=== PATIENT | female | born 1935 | race Two or more races ===

== ENCOUNTER 2021-04-18 09:18 | Inpatient (IN) | payer MEDICARE ==
[~2021-04-18] VITALS: Ht 154.9 cm; Wt 84.1 kg
[2021-04-18] MEDS ORDERED: CLINDAMYCIN 300MG IV 50 ML IV ONE (09:30)
[2021-04-18] MEDS ORDERED: cefTRIAXone 1GM/50ML D5W 50 ML IV ONE (09:30)
[2021-04-18 10:01] LABS: Basophils # (auto) 0.1 10 ^3/uL (0-0.2); Basophils % (auto) 1.2 % (0.0-2.0); Eosinophils # (auto) 0.1 10 ^3/uL (0-0.8); Eosinophils % (auto) 2.8 % (0.0-7.0); Hematocrit 36.7 % (36.0-46.0); Hemoglobin 12.6 g/dL (12.2-16.2); Lymphocytes # (auto) 0.9 10 ^3/uL (0.4-5.4); Lymphocytes % (auto) 20.4 % (10.0-50.0); Mean Corpuscular Hemoglobin 31.2 pg (28.0-32.0); Mean Corpuscular Hgb Conc. 34.4 g/dL (32.0-36.0); Mean Corpuscular Volume 90.6 fL (80.0-100.0); Monocytes # (auto) 0.6 10 ^3/uL (0-1.3); Monocytes % (auto) 13.1 % (0.0-12.0); Neutrophils # (auto) 2.8 10 ^3/uL (1.6-8.6); Neutrophils % (auto) 62.5 % (37.0-80.0); Nucleated Red Blood Cells % 0.1 %; Red Blood Cells 4.05 10^6/uL (4.0-5.20); White Blood Cell 4.5 10^3/uL (4.4-10.8)
[2021-04-18 10:16] LABS: Albumin 3.1 g/dL (3.4-5.0); Anion Gap 7 (5-15); Blood Urea Nitrogen 16 mg/dL (7-18); Calcium 8.9 mg/dL (8.5-10.1); Carbon Dioxide 25 mmol/L (21-32); Chloride 96 mmol/L (98-107); Glucose 98 mg/dL (74-106); INR 0.96 (0.9-1.15); Partial Thromboplastin Time 27.5 sec (23.0-31.2); Potassium 3.9 mmol/L (3.5-5.1); Sodium 128 mmol/L (136-145)
[2021-04-18 10:21] LABS: Alanine Aminotransferase 32 U/L (13-56); Alkaline Phosphatase 84 U/L (45-117); Aspartate Aminotransferase 24 U/L (15-37); BUN/Creatinine Ratio 22.9; Bilirubin, Total 0.5 mg/dL (0.2-1.0); GFR African American 102 mL/min; GFR Non-African American 84 mL/min; Total Protein 6.8 g/dL (6.4-8.2)
[2021-04-18] MEDS ORDERED: IOHEXOL 300 MG/ML 100ML BOTTLE IJ ONE (10:35)
[2021-04-18] MEDS ORDERED: MORPHINE SULF INJ 2 MG/ML SYRINGE 1ML IV PRN (16:45)
[2021-04-18] MEDS ORDERED: NITROGLYCERIN 0.4 MG SL TAB SL PRN (16:45)
[2021-04-18] MEDS ORDERED: ACETAMINOPHEN 500 MG TAB PO PRN (18:15)
[2021-04-18] MEDS ORDERED: ONDANSETRON HCL 4 MG/2 ML VIAL IV PRN (18:15)
[2021-04-18] MEDS: SODIUM CHLORIDE 0.9% 1,000 ML IV SCH (18:37)
[2021-04-18] MEDS: CLINDAMYCIN 600MG IV 50 ML IV SCH (22:15)
[2021-04-18] MEDS ORDERED: FLUT1SPR5 (23:45)
[2021-04-18] MEDS ORDERED: CYAN-17 PO (23:45)
[2021-04-18] MEDS ORDERED: FLUT1INH6 IN (23:45)
[2021-04-18] MEDS ORDERED: LACTCAP35 OR (23:45)
[2021-04-18] MEDS ORDERED: ZINC220C8 PO (23:45)
[2021-04-18] MEDS ORDERED: MULTCAP45 PO (23:45)
[2021-04-18] MEDS ORDERED: GLUC1CAP11 PO (23:45)
[2021-04-18] MEDS ORDERED: MONT10TA42 PO (23:45)
[2021-04-18] MEDS ORDERED: HYDR-4795 PO (23:45)
[2021-04-18] MEDS ORDERED: OMEP20TA PO (23:45)
[2021-04-18] MEDS ORDERED: CRAN125T PO (23:45)
[2021-04-18] MEDS ORDERED: CYCL10TA6 PO (23:45)
[2021-04-18] MEDS ORDERED: GUAI100S PO (23:45)
[2021-04-18] MEDS ORDERED: CHOL100047 PO (23:45)
[2021-04-18] MEDS ORDERED: ASCO500T11 PO (23:45)
[2021-04-18] MEDS ORDERED: CARB0.5D8 EACHEYE (23:45)
[2021-04-18] MEDS ORDERED: LOSA100T33 PO (23:45)
[2021-04-18] MEDS ORDERED: GABA100C9 PO (23:45)
[2021-04-18] MEDS ORDERED: FLAX1300 OR (23:45)
[2021-04-18] MEDS ORDERED: ECHI80CA PO (23:45)
[2021-04-18] MEDS ORDERED: MELO1TAB56 PO (23:45)
[2021-04-18 23:52] VITALS: BP 144/72
[2021-04-19] VITALS (8 sets, daily range): BP systolic 152–161; BP diastolic 75–84
[2021-04-19] MEDS: SODIUM CHLORIDE 0.9% 1,000 ML IV SCH ×2 (04:15→15:10)
[2021-04-19] MEDS: CLINDAMYCIN 600MG IV 50 ML IV SCH ×3 (05:26→21:25)
[2021-04-19 06:29] LABS: Albumin 3.2 g/dL (3.4-5.0); BUN/Creatinine Ratio 25.5; Calcium 9.1 mg/dL (8.5-10.1); Potassium 3.9 mmol/L (3.5-5.1)
[2021-04-19 06:32] LABS: Bilirubin, Total 0.4 mg/dL (0.2-1.0); Total Protein 6.3 g/dL (6.4-8.2)
[2021-04-19] MEDS: cefTRIAXone 1GM/50ML D5W 50 ML IV SCH (08:36)
[2021-04-19] MEDS ORDERED: ENOXAPARIN SOD 40 MG/0.4 ML SYRINGE SC SCH (10:00)
[2021-04-19] MEDS ORDERED: ALBUTEROL SULF 2.5 MG/0.5ML(0.5%) NEB SOLN NEB PRN (12:15)
[2021-04-19] MEDS: hydrALAZINE HCL 20 MG/ML VL IV PRN (21:24)
[2021-04-19] MEDS: traMADol HCL 50 MG TAB PO PRN (21:24)
[2021-04-20] VITALS (9 sets, daily range): BP systolic 133–152; BP diastolic 64–84
[2021-04-20] MEDS: SODIUM CHLORIDE 0.9% 1,000 ML IV SCH ×2 (05:17→12:51)
[2021-04-20 05:27] LABS: Basophils # (auto) 0 10 ^3/uL (0-0.2); Basophils % (auto) 1.2 % (0.0-2.0); Eosinophils # (auto) 0.1 10 ^3/uL (0-0.8); Eosinophils % (auto) 2.4 % (0.0-7.0); Hematocrit 38.9 % (36.0-46.0); Hemoglobin 13.1 g/dL (12.2-16.2); Lymphocytes # (auto) 1.1 10 ^3/uL (0.4-5.4); Lymphocytes % (auto) 30.3 % (10.0-50.0); Mean Corpuscular Hemoglobin 31.6 pg (28.0-32.0); Mean Corpuscular Hgb Conc. 33.6 g/dL (32.0-36.0); Mean Corpuscular Volume 93.9 fL (80.0-100.0); Monocytes # (auto) 0.7 10 ^3/uL (0-1.3); Neutrophils # (auto) 1.8 10 ^3/uL (1.6-8.6); Neutrophils % (auto) 48.1 % (37.0-80.0); Nucleated Red Blood Cells % 0.3 %; Red Blood Cells 4.14 10^6/uL (4.0-5.20); Red Cell Distribution Width 13.2 % (11.8-14.3); White Blood Cell 3.7 10^3/uL (4.4-10.8)
[2021-04-20 05:46] LABS: BUN/Creatinine Ratio 24.4; Calcium 8.5 mg/dL (8.5-10.1); Potassium 3.5 mmol/L (3.5-5.1)
[2021-04-20] MEDS: CLINDAMYCIN 600MG IV 50 ML IV SCH ×3 (05:52→21:24)
[2021-04-20] MEDS: cefTRIAXone 1GM/50ML D5W 50 ML IV SCH (08:21)
[2021-04-20] MEDS ORDERED: ceFAZolin 1GM/50ML 50 ML IV ONE (14:58)
[2021-04-20] MEDS ORDERED: fentaNYL CITRATE 100 MCG/2 ML VL ONE (15:06)
[2021-04-20] MEDS ORDERED: MEPERIDINE HCL (25 MG/ML) 1ML VIAL ONE (15:06)
[2021-04-20] MEDS ORDERED: MIDAZOLAM HCL 2MG/2ML 2ml VIAL (1mg/ml) ONE (15:08)
[2021-04-20] MEDS ORDERED: DexAMETHasone SOD PHOS 10MG/1ML VIAL INJ ONE (15:17)
[2021-04-20] MEDS ORDERED: PROPOFOL 10 MG/ML 20 ML IV ONE (15:17)
[2021-04-20] MEDS ORDERED: MORPHINE SULF INJ 2 MG/ML SYRINGE 1ML IV PRN (15:30)
[2021-04-20] MEDS ORDERED: ONDANSETRON HCL 4 MG/2 ML VIAL IV PRN (15:30)
[2021-04-20] MEDS ORDERED: MIDAZOLAM HCL 2MG/2ML 2ml VIAL (1mg/ml) IV PRN (15:30)
[2021-04-20] MEDS ORDERED: ePHEDrine SULFATE 50 MG/ML AMP IV PRN (15:30)
[2021-04-20] MEDS ORDERED: LABETALOL HCL 5 MG/ML 4ML SYRINGE IV PRN (15:30)
[2021-04-20] MEDS: HYDROmorphone HCL 2 MG/ML VL IV PRN ×4 (15:57→16:40)
[2021-04-20] MEDS: hydrALAZINE HCL 20 MG/ML VL IV PRN (16:38)
[2021-04-20] MEDS ORDERED: hydrALAZINE HCL 20 MG/ML VL IV ONE (16:45)
[2021-04-20] MEDS: traMADol HCL 50 MG TAB PO PRN (17:20)
[2021-04-20] MEDS ORDERED: HYDROcodone-ACET 5/325MG TAB PO PRN (19:15)
[2021-04-20] MEDS: MORPHINE SULF INJ 2 MG/ML SYRINGE 1ML IV PRN (21:25)
[2021-04-21] MEDS: MORPHINE SULF INJ 2 MG/ML SYRINGE 1ML IV PRN ×2 (04:51→08:45)
[2021-04-21] MEDS: SODIUM CHLORIDE 0.9% 1,000 ML IV SCH (04:51)
[2021-04-21 05:00] VITALS: BP 146/73
[2021-04-21 05:31] LABS: Basophils # (auto) 0 10 ^3/uL (0-0.2); Basophils % (auto) 0.4 % (0.0-2.0); Eosinophils # (auto) 0 10 ^3/uL (0-0.8); Hematocrit 37.6 % (36.0-46.0); Lymphocytes # (auto) 0.6 10 ^3/uL (0.4-5.4); Lymphocytes % (auto) 12.6 % (10.0-50.0); Mean Corpuscular Hemoglobin 31.3 pg (28.0-32.0); Mean Corpuscular Hgb Conc. 34.5 g/dL (32.0-36.0); Mean Corpuscular Volume 90.6 fL (80.0-100.0); Monocytes # (auto) 0.2 10 ^3/uL (0-1.3); Neutrophils # (auto) 3.7 10 ^3/uL (1.6-8.6); Red Blood Cells 4.15 10^6/uL (4.0-5.20); White Blood Cell 4.6 10^3/uL (4.4-10.8)
[2021-04-21] MEDS: CLINDAMYCIN 600MG IV 50 ML IV SCH ×2 (05:34→14:23)
[2021-04-21 05:53] LABS: Calcium 8.8 mg/dL (8.5-10.1); Potassium 4.1 mmol/L (3.5-5.1)
[2021-04-21 05:55] LABS: BUN/Creatinine Ratio 22.2
[2021-04-21 08:30] VITALS: BP 146/62
[2021-04-21] MEDS: cefTRIAXone 1GM/50ML D5W 50 ML IV SCH (08:45)
[2021-04-21 09:00] VITALS: BP 146/62
[2021-04-21] MEDS ORDERED: ENOXAPARIN SOD 40 MG/0.4 ML SYRINGE SC SCH (10:00)
[2021-04-21] MEDS ORDERED: DOCUSATE SOD 100 MG CAP PO SCH (10:00)
[2021-04-21] MEDS ORDERED: CLIN300C8 PO (10:38)
[2021-04-21] MEDS ORDERED: SACC250C PO (10:38)
[2021-04-21 13:00] VITALS: BP 157/64
[2021-04-21 16:38] VITALS: BP 158/73
[2021-04-21 18:30] VITALS: BP 157/64
== END 2021-04-21 19:05 | disposition home health service (06) | DRG 486 ==
LOC: ER 09:18 → TELE 16:37 → TELE-CENTR 22:33
PROVIDERS: ADMIT Internal Medicine; ATTEND Internal Medicine
PROC: 0QPD04Z Removal of Internal Fixation Device from Right Patella, Open Approach (ICD-10-PCS; principal; 2021-04-20 15:05)
PROC: 0QBD0ZZ Excision of Right Patella, Open Approach (ICD-10-PCS; 2021-04-20 15:05)
PROC: 05H933Z Insertion of Infusion Device into Right Brachial Vein, Percutaneous Approach (ICD-10-PCS; 2021-04-21)
PROC: B54MZZA Ultrasonography of Right Upper Extremity Veins, Guidance (ICD-10-PCS; 2021-04-21)
DX: T84.53XA Infection and inflammatory reaction due to internal right knee prosthesis, initial encounter (principal); M86.8X6 Other osteomyelitis, lower leg; L03.115 Cellulitis of right lower limb; M19.90 Unspecified osteoarthritis, unspecified site; Z20.822 Contact with and (suspected) exposure to COVID-19; W01.0XXA Fall on same level from slipping, tripping and stumbling without subsequent striking against object, initial encounter; I10 Essential (primary) hypertension; M25.461 Effusion, right knee; Y83.8 Other surgical procedures as the cause of abnormal reaction of the patient, or of later complication, without mention of misadventure at the time of the procedure; Z88.5 Allergy status to narcotic agent; Y93.89 Activity, other specified; Y92.89 Other specified places as the place of occurrence of the external cause; Y99.8 Other external cause status
CPT/HCPCS: 36415; 71045; 73560; 73701; 80048; 80053; 83605; 83735; 84484; 85025; 85610; 85652; 85730; 87040; 87077; 87081; 87186; 87205; 87426; 93306; 96365; 96367; 97163; G0378; J0690; J0696; J1100; J2250; J2704; J3490

== ENCOUNTER → 2021-05-01 | Emergency (ER) | payer MEDICARE ==
[~2021-05-01] MED LIST: ASCO500T11 PO; CARB0.5D8 EACHEYE; CHOL100047 PO; CLIN300C8 PO; CRAN125T PO; CYAN-17 PO; CYCL10TA6 PO; ECHI80CA PO; FLAX1300 OR; FLUT1INH6 IN; FLUT1SPR5; GABA100C9 PO; GLUC1CAP11 PO; GUAI100S PO; HYDR-4795 PO; LACTCAP35 OR; LOSA100T33 PO; MELO1TAB56 PO; MONT10TA42 PO; MULTCAP45 PO; OMEP20TA PO; SACC250C PO; ZINC220C8 PO
== END | disposition left against medical advice (07) ==
LOC: ER 17:02
DX: Z45.2 Encounter for adjustment and management of vascular access device (principal); Z53.21 Procedure and treatment not carried out due to patient leaving prior to being seen by health care provider

== ENCOUNTER 2022-01-26 13:29 | Inpatient (IN) | payer MEDICARE ==
[~2022-01-26] VITALS: Ht 154.9 cm; Wt 84.4 kg
[~2022-01-26 13:29] MED LIST changes: +CYCL-839 PO; -CYCL10TA6 PO; +MONT-8 PO; -MONT10TA42 PO
[2022-01-26 14:34] LABS: Basophils # (auto) 0.1 10 ^3/uL (0-0.2); Eosinophils # (auto) 0.1 10 ^3/uL (0-0.8); Eosinophils % (auto) 1.2 % (0.0-7.0); Hematocrit 37.2 % (36.0-46.0); Lymphocytes # (auto) 0.9 10 ^3/uL (0.4-5.4); Lymphocytes % (auto) 16.3 % (10.0-50.0); Mean Corpuscular Hemoglobin 31.3 pg (28.0-32.0); Mean Corpuscular Hgb Conc. 34.9 g/dL (32.0-36.0); Mean Corpuscular Volume 89.9 fL (80.0-100.0); Monocytes # (auto) 0.6 10 ^3/uL (0-1.3); Monocytes % (auto) 10.9 % (0.0-12.0); Neutrophils # (auto) 3.8 10 ^3/uL (1.6-8.6); Neutrophils % (auto) 70.6 % (37.0-80.0); Red Blood Cells 4.14 10^6/uL (4.0-5.20); Red Cell Distribution Width 12.6 % (11.8-14.3); White Blood Cell 5.4 10^3/uL (4.4-10.8)
[2022-01-26 14:51] LABS: Calcium 8.6 mg/dL (8.5-10.1); Potassium 3.7 mmol/L (3.5-5.1)
[2022-01-26 14:54] LABS: BUN/Creatinine Ratio 27.6; Bilirubin, Total 0.6 mg/dL (0.2-1.0); Total Protein 6.4 g/dL (6.4-8.2)
[2022-01-26 16:19] LABS: Urine Bacteria FEW /hpf (None Seen); Urine Blood Negative /uL (Negative); Urine Specific Gravity 1.007 (1.001-1.035); Urine WBC 2 /hpf (0 - 5)
[2022-01-26] MEDS ORDERED: hydrALAZINE HCL 20 MG/ML VL IV ONE (16:45)
[2022-01-26] MEDS ORDERED: NITROGLYCERIN 0.4 MG SL TAB SL PRN (16:45)
[2022-01-26] MEDS ORDERED: MORPHINE SULFATE INJECTION 2 MG/ML SYRG IV PRN ×2 (16:45→20:15)
[2022-01-26] MEDS ORDERED: NIFEdipine ER 30 MG TAB PO ONE (17:00)
[2022-01-26] MEDS: ENALAPRILAT 1.25 MG/ML-1ML VIAL IV PRN (17:38)
[2022-01-26] MEDS ORDERED: hydrALAZINE HCL 25 MG TAB PO PRN (18:15)
[2022-01-26 20:00] VITALS: BP 158/58
[2022-01-26] MEDS ORDERED: ONDANSETRON HCL 4 MG/2 ML VIAL IV PRN (20:15)
[2022-01-26] MEDS ORDERED: PANTOPRAZOLE 40 MG/10 ML VIAL INJ IV ONE (20:15)
[2022-01-26] MEDS ORDERED: LORazepam 2MG/ML-1ML VIAL IV PRN (20:15)
[2022-01-26] MEDS ORDERED: DOCUSATE SOD 100 MG CAP PO PRN (20:15)
[2022-01-26] MEDS ORDERED: ALBUTEROL SULF 2.5 MG/0.5ML(0.5%) NEB SOLN NEB PRN (20:15)
[2022-01-26] MEDS ORDERED: LORazepam 0.5 MG TAB PO PRN (20:15)
[2022-01-26] MEDS ORDERED: ACETAMINOPHEN 325 MG TAB PO PRN (20:15)
[2022-01-26] MEDS ORDERED: SODIUM CHLORIDE 0.9% 1,000 ML IV SCH (20:15)
[2022-01-26] MEDS ORDERED: hydrALAZINE HCL 20 MG/ML VL IV PRN (20:15)
[2022-01-26] MEDS ORDERED: BENAZEPRIL HCL 10 MG TAB PO ONE (20:15)
[2022-01-26 20:28] VITALS: BP 162/66
[2022-01-26 20:30] VITALS: BP 158/58
[2022-01-26 20:48] LABS: Magnesium 1.7 mg/dL (1.6-2.6); Phosphorus 2.5 mg/dL (2.5-4.90)
[2022-01-26] MEDS ORDERED: IPRATROPIUM BROM 0.5 MG/2.5ML INH SOL NEB SCH (22:00)
[2022-01-26] MEDS: GABAPENTIN 100 MG CAP PO SCH (22:49)
[2022-01-26] MEDS: MONTELUKAST SODIUM 10 MG TAB PO SCH (22:49)
[2022-01-26] MEDS ORDERED: IPRATROPIUM BROM 0.5 MG/2.5ML INH SOL NEB PRN (23:15)
[2022-01-26 23:48] LABS: INR 0.99 (0.9-1.15); Partial Thromboplastin Time 24.8 sec (23.6-33.0)
[2022-01-27] MEDS: HYDROcodone-ACET 5/325MG TAB PO PRN ×3 (03:55→18:55)
[2022-01-27 05:00] VITALS: BP 120/38
[2022-01-27 06:47] LABS: Basophils # (auto) 0.1 10 ^3/uL (0-0.2); Basophils % (auto) 1.2 % (0.0-2.0); Eosinophils # (auto) 0.1 10 ^3/uL (0-0.8); Eosinophils % (auto) 2.1 % (0.0-7.0); Hemoglobin 13.2 g/dL (12.2-16.2); Lymphocytes # (auto) 1.2 10 ^3/uL (0.4-5.4); Lymphocytes % (auto) 25.2 % (10.0-50.0); Mean Corpuscular Hemoglobin 31.8 pg (28.0-32.0); Mean Corpuscular Hgb Conc. 35.7 g/dL (32.0-36.0); Mean Corpuscular Volume 89.1 fL (80.0-100.0); Monocytes # (auto) 0.5 10 ^3/uL (0-1.3); Monocytes % (auto) 10.6 % (0.0-12.0); Neutrophils # (auto) 2.9 10 ^3/uL (1.6-8.6); Neutrophils % (auto) 60.9 % (37.0-80.0); Red Blood Cells 4.15 10^6/uL (4.0-5.20); Red Cell Distribution Width 12.7 % (11.8-14.3); White Blood Cell 4.8 10^3/uL (4.4-10.8)
[2022-01-27 07:05] LABS: BUN/Creatinine Ratio 25.7; Calcium 9.4 mg/dL (8.5-10.1); Magnesium 1.8 mg/dL (1.6-2.6); Potassium 4.1 mmol/L (3.5-5.1); Uric Acid 3.4 mg/dL (2.6-6.0)
[2022-01-27 07:10] LABS: Bilirubin, Total 0.6 mg/dL (0.2-1.0); CRP High Sensitivity 0.14 mg/dL (< 0.3); Phosphorus 2.8 mg/dL (2.5-4.90); Total Protein 6.5 g/dL (6.4-8.2)
[2022-01-27 07:21] LABS: INR 1.03 (0.9-1.15); Partial Thromboplastin Time 25.7 sec (23.6-33.0)
[2022-01-27 08:06] LABS: Thyroid Stimulating Hormone 3.03 uIU/mL (0.358-3.74)
[2022-01-27 09:12] VITALS: BP 140/66
[2022-01-27] MEDS: cefTRIAXone 1GM/50ML D5W 50 ML IV SCH (09:44)
[2022-01-27] MEDS: GABAPENTIN 100 MG CAP PO SCH ×2 (09:45→21:40)
[2022-01-27] MEDS: ENOXAPARIN SOD 40 MG/0.4 ML SYRINGE SC SCH (09:45)
[2022-01-27] MEDS ORDERED: PANTOPRAZOLE 40 MG/10 ML VIAL INJ IV SCH (10:00)
[2022-01-27] MEDS ORDERED: BENAZEPRIL HCL 10 MG TAB PO SCH (10:00)
[2022-01-27] MEDS ORDERED: guaiFENesin 200 MG/10 ML UD PO PRN (10:15)
[2022-01-27 12:30] VITALS: BP_SYST 133; BP_SYST 151; BP_SYST 178; BP_DIAS 69; BP_DIAS 73; BP_DIAS 75
[2022-01-27 13:14] VITALS: BP 149/57
[2022-01-27 16:57] VITALS: BP 149/57
[2022-01-27 18:52] LABS: Urine Bacteria NONE SEEN /hpf (None Seen); Urine Blood 1+ /uL (Negative); Urine Specific Gravity 1.011 (1.001-1.035); Urine WBC 37 /hpf (0 - 5)
[2022-01-27 19:04] LABS: Alcohol, Urine < 3.0 mg/dL (0-10); Amphetamine Screen, Urine NEGATIVE (NEGATIVE); Barbiturate Scree,Urine NEGATIVE (NEGATIVE); Benzodiazephine Screen, Urine NEGATIVE (NEGATIVE); Cannabinoid Screen, Urine NEGATIVE (NEGATIVE); Cocaine Screen, Urine NEGATIVE (NEGATIVE); Opiate Scree,Urine NEGATIVE (NEGATIVE); Phencyclidine Screen, Urine NEGATIVE (NEGATIVE); Protein, Urine 8.9 mg/dL (0.0-11.9)
[2022-01-27] MEDS: ZOLPIDEM TARTRATE 5 MG TAB PO PRN (21:40)
[2022-01-27] MEDS: MONTELUKAST SODIUM 10 MG TAB PO SCH (21:40)
[2022-01-27 22:00] VITALS: BP 152/65
[2022-01-28] VITALS (7 sets, daily range): BP systolic 99–173; BP diastolic 50–78
[2022-01-28] MEDS: ENALAPRILAT 1.25 MG/ML-1ML VIAL IV PRN ×2 (04:26→11:30)
[2022-01-28] MEDS: HCTZ 25 MG TAB PO SCH (10:30)
[2022-01-28] MEDS: PANTOPRAZOLE 40 MG TAB PO SCH (10:33)
[2022-01-28] MEDS: CYANOCOBALAMIN 500 MCG TAB PO SCH (10:33)
[2022-01-28] MEDS: ENOXAPARIN SOD 40 MG/0.4 ML SYRINGE SC SCH (10:33)
[2022-01-28] MEDS: cefTRIAXone 1GM/50ML D5W 50 ML IV SCH (10:33)
[2022-01-28] MEDS: HYDROcodone-ACET 5/325MG TAB PO PRN ×2 (10:34→18:42)
[2022-01-28] MEDS: GABAPENTIN 100 MG CAP PO SCH ×2 (10:34→21:58)
[2022-01-28] MEDS: LOSARTAN POTASSIUM 50 MG TAB PO SCH (11:30)
[2022-01-28] MEDS: MONTELUKAST SODIUM 10 MG TAB PO SCH (21:58)
[2022-01-28] MEDS: ZOLPIDEM TARTRATE 5 MG TAB PO PRN (21:59)
[2022-01-29] MEDS: HYDROcodone-ACET 5/325MG TAB PO PRN (04:09)
[2022-01-29] MEDS: ENALAPRILAT 1.25 MG/ML-1ML VIAL IV PRN ×2 (04:20→05:55)
[2022-01-29 05:30] VITALS: BP_SYST 127; BP_SYST 140; BP_SYST 168; BP_DIAS 59; BP_DIAS 69; BP_DIAS 87
[2022-01-29 08:00] VITALS: BP 143/58
[2022-01-29 09:00] VITALS: BP 143/58
[2022-01-29] MEDS ORDERED: CEFU500T43 PO (09:08)
[2022-01-29] MEDS: CYANOCOBALAMIN 500 MCG TAB PO SCH (09:24)
[2022-01-29] MEDS: ENOXAPARIN SOD 40 MG/0.4 ML SYRINGE SC SCH (09:24)
[2022-01-29] MEDS: HCTZ 25 MG TAB PO SCH (09:25)
[2022-01-29] MEDS: PANTOPRAZOLE 40 MG TAB PO SCH (09:25)
[2022-01-29] MEDS: LOSARTAN POTASSIUM 50 MG TAB PO SCH (09:25)
[2022-01-29] MEDS: GABAPENTIN 100 MG CAP PO SCH (09:25)
[2022-01-29] MEDS: cefTRIAXone 1GM/50ML D5W 50 ML IV SCH (09:25)
[2022-01-29 10:35] VITALS: BP 143/58
[2022-01-29 12:00] VITALS: BP_SYST 132; BP_SYST 155; BP_SYST 159; BP_DIAS 59; BP_DIAS 61; BP_DIAS 71
[2022-01-29 13:09] VITALS: BP 132/61
== END 2022-01-29 13:10 | disposition home or self-care (01) | DRG 74 ==
LOC: ER 13:29 → EDBD 13:29 → TELE 16:33 → TELE-CENTR 19:53
PROVIDERS: ADMIT Hospitalist; ATTEND Internal Medicine
DX: G90.9 Disorder of the autonomic nervous system, unspecified (principal); N39.0 Urinary tract infection, site not specified; I11.9 Hypertensive heart disease without heart failure; G40.901 Epilepsy, unspecified, not intractable, with status epilepticus; E78.5 Hyperlipidemia, unspecified; I25.10 Atherosclerotic heart disease of native coronary artery without angina pectoris; I27.9 Pulmonary heart disease, unspecified; J44.9 Chronic obstructive pulmonary disease, unspecified; K21.9 Gastro-esophageal reflux disease without esophagitis; M19.90 Unspecified osteoarthritis, unspecified site; E66.01 Morbid (severe) obesity due to excess calories; J32.9 Chronic sinusitis, unspecified; Z20.822 Contact with and (suspected) exposure to COVID-19; G89.29 Other chronic pain; Z82.49 Family history of ischemic heart disease and other diseases of the circulatory system; Z88.5 Allergy status to narcotic agent; Z68.35 Body mass index [BMI] 35.0-35.9, adult
CPT/HCPCS: 36415; 36600; 70450; 71045; 80053; 80061; 80307; 81001; 82550; 82728; 82805; 83036; 83615; 83690; 83735; 83880; 84100; 84156; 84443; 84484; 84550; 85025; 85379; 85610; 85652; 85730; 86141; 87040; 87081; 87086; 93005; 93306; 93886; 94640; 96374; 97163; C9113; G0378; J0696

== ENCOUNTER 2022-11-14 13:43 | Emergency (ER) | payer MEDICARE ==
[~2022-11-14] VITALS: Ht 154.9 cm; Wt 77.0 kg
[~2022-11-14 13:43] MED LIST changes: +CEFU500T43 PO
[2022-11-14 14:12] VITALS: BP 163/66
[2022-11-14 15:09] LABS: Basophils # (auto) 0 10 ^3/uL (0-0.2); Basophils % (auto) 1.1 % (0.0-2.0); Eosinophils # (auto) 0.1 10 ^3/uL (0-0.8); Eosinophils % (auto) 1.7 % (0.0-7.0); Hematocrit 41.1 % (36.0-46.0); Lymphocytes # (auto) 0.7 10 ^3/uL (0.4-5.4); Lymphocytes % (auto) 15.3 % (10.0-50.0); Mean Corpuscular Hemoglobin 30.9 pg (28.0-32.0); Mean Corpuscular Volume 90.8 fL (80.0-100.0); Monocytes # (auto) 0.5 10 ^3/uL (0-1.3); Monocytes % (auto) 11.6 % (0.0-12.0); Neutrophils # (auto) 3.1 10 ^3/uL (1.6-8.6); Neutrophils % (auto) 70.3 % (37.0-80.0); Nucleated Red Blood Cells % 0.3 %; Red Blood Cells 4.53 10^6/uL (4.0-5.20); Red Cell Distribution Width 13.2 % (11.8-14.3); White Blood Cell 4.4 10^3/uL (4.4-10.8)
[2022-11-14 15:21] LABS: Albumin 3.1 g/dL (3.4-5.0); Calcium 9.7 mg/dL (8.5-10.1); Potassium 4.1 mmol/L (3.5-5.1)
[2022-11-14 15:24] LABS: Bilirubin, Total 0.7 mg/dL (0.2-1.0); Total Protein 6.2 g/dL (6.4-8.2)
== END 2022-11-14 20:00 | disposition left against medical advice (07) ==
LOC: EDBD 13:43 → ER 13:43 → EDUNIT# 13:43 → ER 20:00
DX: E87.1 Hypo-osmolality and hyponatremia (principal); I24.8 Other forms of acute ischemic heart disease; R55 Syncope and collapse; I10 Essential (primary) hypertension; Z88.5 Allergy status to narcotic agent; Z79.899 Other long term (current) drug therapy; Z20.822 Contact with and (suspected) exposure to COVID-19
CPT/HCPCS: 36415; 70450; 80053; 85025; 87426; 93005